=== PATIENT | male | born 1955 | race Caucasian/White ===

== ENCOUNTER → 2020-12-31 14:18 | Outpatient (CLI) | payer MEDICARE, OTHER, SELFPAY ==
--- NOTE | 2020-12-31 14:22 | DI.RAD.S_ITS ---
PROCEDURE: XR CERVICAL SPINE 4V OR 5V INDICATIONS: NECK/BACK PAIN TECHNIQUE: 5 views of the cervical spine acquired. COMPARISON: None. FINDINGS: Bones: No fractures or dislocations to the T1 level. Oblique images demonstrate no bony foraminal stenoses. Note is made of a moderately severe degree of C4-C5 degenerative disc height reduction and endplate osteophyte formation anteriorly. At C5-6 the degree of degenerative disc disease is mild and then moderately severe at C6-C7. Soft tissues: No prevertebral soft tissue swelling. IMPRESSION: Degenerative disc disease from C4 through C7 to the degree that significant spinal and foraminal stenosis likely is present. On oblique imaging facet osteoarthritis is noted over these levels which further contributes to nerve root impingement, with likelihood of multilevel symmetric nerve root impingement from C4 through C6. Dictated by: Jacinto Mcclure M.D. on 12/31/2020 at 15:08 Approved by: Jacinto Mcclure M.D. on 12/31/2020 at 15:09
--- NOTE | 2020-12-31 14:22 | DI.RAD.S_ITS ---
PROCEDURE: XR LUMBAR SPINE MIN 4V INDICATIONS: NECK/BACK PAIN TECHNIQUE: 5 views of the lumbar spine were acquired, including bilateral oblique views. COMPARISON: None. FINDINGS: Bones: 5 nonrib-bearing vertebrae are present. There is 18.5 degrees levoscoliotic bony alignment. No vertebral body compression fractures. No suspicious bony lesions. Soft tissues: Overlying bowel gas pattern is normal. No suspicious soft tissue calcifications. Oblique images: No pars defects. IMPRESSION: 18.5 degree convex leftward scoliosis centered at L2, without compression fracture or subluxation. The degenerative disc height reduction present ranges from mild to moderately severe and most pronounced at L4-5 where grade 1 moderate anterolisthesis of L4 on L5 can be seen. Spinal and foraminal stenosis from L3 inferiorly likely is present, most pronounced at L4-5 and L5-S1. Dictated by: Jacinto Mcclure M.D. on 12/31/2020 at 15:06 Approved by: Jacinto Mcclure M.D. on 12/31/2020 at 15:08
== END ==
PROVIDERS: PCP Family Medicine; Referring Provider Physical Medicine & Rehabilitation; Visit Provider Physical Medicine & Rehabilitation
DX: M54.9 Dorsalgia, unspecified (principal); M50.121 Cervical disc disorder at C4-C5 level with radiculopathy; M47.22 Other spondylosis with radiculopathy, cervical region; M41.27 Other idiopathic scoliosis, lumbosacral region; M43.16 Spondylolisthesis, lumbar region; M54.16 Radiculopathy, lumbar region; R20.2 Paresthesia of skin
CPT/HCPCS: 72050; 72110; 99214

== ENCOUNTER → 2021-01-03 19:10 | Outpatient (CLI) | payer MEDICARE, OTHER, SELFPAY ==
--- NOTE | 2021-01-03 19:15 | DI.MRI.S_ITS ---
PROCEDURE: MR CERVICAL SPINE WO CON INDICATIONS: paresthesia of skin TECHNIQUE: Noncontrast sagittal T1 spin echo and T2 fast spin echo, sagittal STIR, foraminal oblique sagittal T2 fast spin echo, and axial gradient echo or T2 fast spin echo through the cervical spine. COMPARISON: None. FINDINGS: Image quality: Excellent. Alignment and Curvature: There is normal bony alignment. Bone Marrow: Marrow demonstrates normal overall signal. Spinal Cord: Visualized spinal cord has normal size and signal. No cerebellar tonsillar herniation. Paraspinous Soft Tissues: No paravertebral masses. Prevertebral soft tissues are normal in thickness. C2-C3: Loss of disc signal. No central stenosis. No neural foraminal narrowing. No neural compression. C3-C4: Loss of disc signal. Mild, diffuse disc bulge. Mild narrowing of the central canal. Mild left uncovertebral joint hypertrophy. Mild left neural foraminal narrowing. No neural compression. C4-C5: Loss of disc signal and height. Moderate, diffuse disc bulge. Severe narrowing of the central canal with compression of the cervical spinal cord. Moderate bilateral uncovertebral joint hypertrophy. Severe bilateral neural foraminal narrowing with compression of the exiting C5 nerve roots. C5-C6: Loss of disc signal and height. Moderate, diffuse disc bulge. Severe narrowing of the central canal with slight compression of the cervical spinal cord. Mild bilateral facet hypertrophy. Mild right and moderate left uncovertebral joint hypertrophy. Severe bilateral neural foraminal narrowing with compression of the exiting C6 nerve roots. C6-C7: Loss of disc signal and height. Mild to moderate diffuse disc bulge. Moderate to severe narrowing of the central canal. Moderate bilateral uncovertebral joint hypertrophy. Mild bilateral facet hypertrophy. Severe bilateral neural foraminal narrowing with compression of the exiting C7 nerve roots. C7-T1: Loss of disc signal and height. Mild to moderate diffuse disc bulge. Moderate narrowing of the central canal. Severe right and mild left uncovertebral joint hypertrophy. Mild bilateral facet hypertrophy. Severe right and moderate left neural foraminal narrowing with compression of the exiting right C8 nerve root IMPRESSION: 1. Multilevel degenerative disc disease. 2. Multilevel facet and uncovertebral arthropathy. 3. Severe C4-C5 and C5-C6 central canal narrowing with compression of the cervical spinal cord. 4. Severe bilateral C4-C5, C5-C6 and C6-C7 neural foraminal narrowing with compression of the exiting C5, C6 and C7 nerve roots. Severe right C7-T1 neural foraminal narrowing with compression of the exiting right C7 nerve root. Dictated by: Monisha Browne MD, PhD on 01/04/2021 at 11:32 Approved by: Monisha Browne MD, PhD on 01/04/2021 at 11:43
== END ==
PROVIDERS: PCP Family Medicine; Referring Provider Physical Medicine & Rehabilitation; Visit Provider Physical Medicine & Rehabilitation
DX: R20.2 Paresthesia of skin (principal); M50.31 Other cervical disc degeneration, high cervical region; M47.812 Spondylosis without myelopathy or radiculopathy, cervical region; M48.02 Spinal stenosis, cervical region
CPT/HCPCS: 72141

== ENCOUNTER → 2021-01-22 08:15 | Outpatient (CLI) | payer MEDICARE, OTHER, SELFPAY ==
[2021-01-22 13:16] LABS: COVID19 -Nasal RAPID Negative (Negative)
== END ==
PROVIDERS: PCP Family Medicine; Visit Provider Physical Medicine & Rehabilitation
DX: Z20.822 Contact with and (suspected) exposure to COVID-19 (principal)
CPT/HCPCS: 87635; C9803

== ENCOUNTER 2021-01-24 13:11 | Outpatient (CLI) | payer MEDICARE, OTHER, SELFPAY ==
[2021-01-24] VITALS (11 sets, daily range): BP systolic 96–134; BP diastolic 53–67; PULSE 46–79; RESP 10–21; TEMP 36.6; O2SAT 94–99
--- NOTE | 2021-01-24 13:15 | DI.RAD.S_ITS ---
PROCEDURE: PAIN L/S FACET INJ/BLK 1ST ELIA COMPARISON: [facility], CR, XR LUMBAR SPINE MIN 4V, 12/31/2020, 14:30. INDICATIONS: SPONDYLOSIS FINDINGS: Fluoroscopic spot filming was performed to verify placement of spinal needles on both sides at the L3-L4 level and the L4-L5 level, as labeled on the films. Appropriate location of the needle tips was confirmed by injection of iodinated contrast. IMPRESSION: Intraprocedural examination within normal limits. Dictated by: Dhruv Boyle M.D. on 01/24/2021 at 14:56 Approved by: Dhruv Boyle M.D. on 01/24/2021 at 14:56
[2021-01-24] MEDS: MIDAZOLAM 5 MG/5 ML VIAL IV (14:25)
[2021-01-24] MEDS: fentaNYL 100 MCG/2 ML INJ 50 MCG IV (14:25)
[2021-01-24] MEDS: BETAMETHASONE 30 MG/5 ML MDV 12 MG INJ (14:34)
[2021-01-24] MEDS: LIDOCAINE 1% 20 ML 10 ML INJ (14:34)
[2021-01-24] MEDS: BUPIVACAINE 0.5% (PF) VIAL 2 ML INJ (14:34)
[2021-01-24] MEDS: IOPAMIDOL 15 ML VIAL 3 ML INJ (14:35)
--- NOTE | 2021-01-24 14:44 | P.PCN_ITS ---
Date/Time/Diagnoses Date of procedure: 01/24/21 Time of procedure: 14:44 Pre-procedure diagnosis: 1. FACET ARTHROPATHY 2. AXIAL LBP 3. MULTILEVEL DDD Post-procedure diagnosis: same Procedure Notes Procedure: 1. FLUORSCOPICALLY GUIDED CONTRAST CONTROLLED FACET JOINT INJECTIONS BILATERAL L3/4, L4/5 Indications: Greyson is referred by Dr. Holley for treatment of Axial LBP Physician: Jerod Deras Total Fluoroscopy time (seconds): 11 Total sedation minutes: 16 Complications: none Procedure in detail & Post-procedure care: FINDINGS Multilevel Facet Arthropathy with Clinically significant axial LBP DESCRIPTION OF PROCEDURE Fluoroscopically guided, contrast-controlled bilateral L3/4, L4/5 facet joint injections. Following review of allergy and review of potential side effects and complications, including, but not necessarily limited to, infection, allergic reaction, local tissue breakdown, stroke, temporary or permanent nerve injury, paralysis, and possible , the patient indicated that the patient understood and agreed to proceed. An informed consent document was signed by the patient, witnessed by a nurse, and placed in the patient's chart. Additionally, other treatment options including medications, modalities, and physical therapy were reviewed with the patient. After review of previous anaesthesic history and IV conscious sedation the patient was deemed safe to proceed with today's procedure with IV conscious sedation as ASA class II designation. Safety time-out was performed to confirm patient ID, procedure to be performed and site of procedure. IV sedation was accomplished with a combination of 2mg of Versed and 50mcg of Fentanyl was administered by the RN after DO order, titrated to patient comfort during the course of the procedure while the patient remained responsive to all verbal commands. In the prone position, following sterile prep and drape of the lumbar region, the posterior aspect of the L3/4, L4/5 facet joints were identified fluoroscopically. The skin was anesthetized via a 25-gauge 1.5-inch needle with 1% lidocaine solution into the corresponding facet joints. At this point, a 22- gauge 3.5-inch spinal needle was atraumatically introduced and advanced under fluoroscopic guidance into the corresponding facet joints. Following negative aspiration, injections of approximately 0.2cc of Isovue 200 confirmed interarticular placement without vascular uptake. The identical procedure was then performed at the L3/4, L4/5 facet joints on the left. Radiological data, including multiple fluoroscopic views of the lumbosacral spine, reveal a spinal needle at the L3/4, L4/5 facet joints bilaterally. Subsequent views show flow of contrast material both superiorly and inferiorly within the joint space without vascular or intrathecal uptake. At this point, a total of 0.5cc including a mixture of 0.25cc Marcaine and 0.25cc betamethasone was injected without complication into each of the corresponding facet joints. The patient tolerated the procedure well without signs or symptoms of complications prior to transfer to the recovery area continued monitoring without incident. The patient was then transferred to the recovery area where they were observed for an appropriate period of time after the injection. The patient reported a VAS score of 7 prior to the procedure and a post-procedure VAS of 0. POST OP INSTRUCTIONS The patient was provided a Pain Log to continue to record their response to the target-specific procedure prior to follow-up visit with their referring phys ician. Additionally, specific post-injection care instructions and a contact number to our office were provided if concerns arise regarding possible complications associated with the procedure are suspected.
== END 2021-01-24 15:11 | disposition home or self-care (01) ==
LOC: RAD 13:14
PROVIDERS: PCP Family Medicine; Referring Provider Physical Medicine & Rehabilitation; Visit Provider Physical Medicine & Rehabilitation
DX: M47.816 Spondylosis without myelopathy or radiculopathy, lumbar region (principal); M51.36 Other intervertebral disc degeneration, lumbar region; M54.5 Low back pain
CPT/HCPCS: 64493; 64494; 99152; J0702; J2250; J3010

== ENCOUNTER 2021-04-11 14:54 | Outpatient (CLI) | payer MEDICARE, OTHER, SELFPAY ==
--- NOTE | 2021-04-11 14:57 | DI.RAD.S_ITS ---
PROCEDURE: PAIN L INTERLAMINAR/CAUDAL INJ INDICATIONS: SPONDYLOSIS COMPARISON: None. FINDINGS: Fluoroscopic spot filming was performed to verify placement of spinal needles at the L4-L5 level(s), as labeled on the films. Appropriate location(s) of the needle tip(s) was confirmed by injection of iodinated contrast. Dictated by: Isidro Ruiz M.D. on 04/11/2021 at 16:21 Approved by: Isidro Ruiz M.D. on 04/11/2021 at 16:21
[2021-04-11 15:05] VITALS: BP 117/65; PULSE 62; RESP 18; TEMP 36.6; O2SAT 97
[2021-04-11 15:26] VITALS: BP 139/65; PULSE 54; RESP 15; O2SAT 97
[2021-04-11] MEDS: fentaNYL 100 MCG/2 ML INJ 50 MCG IV (15:28)
[2021-04-11] MEDS: MIDAZOLAM 5 MG/5 ML VIAL IV (15:28)
[2021-04-11 15:30] VITALS: BP 126/66; PULSE 54; RESP 11; O2SAT 94
[2021-04-11] MEDS: IOPAMIDOL 15 ML VIAL 3 ML INJ (15:32)
[2021-04-11] MEDS: DEXAMETHASONE 10 MG/ML VIAL 20 MG INJ (15:32)
[2021-04-11] MEDS: BUPIVACAINE 0.25% (PF) VIAL 2 ML INJ (15:32)
[2021-04-11] MEDS: BETAMETHASONE 30 MG/5 ML MDV 6 MG INJ (15:33)
[2021-04-11 15:35] VITALS: BP 121/68; PULSE 54; RESP 10; O2SAT 95
--- NOTE | 2021-04-11 15:42 | P.PCN_ITS ---
Date/Time/Diagnoses Date of procedure: 04/11/21 Time of procedure: 15:44 Pre-procedure diagnosis: 1. HNP WITH RADICULAR FEATURES, 2. MULTILEVEL CENTRAL STENOSIS, Post-procedure diagnosis: same Procedure Notes Procedure: 1. FLUOROSCOPICALLY GUIDED CONTRAST CONTROLLED INTERLAMINAR EPIDURAL STEROID INJECTION -L4/5 Indications: Greyson is referred by Dr. Holley for treatment of Bilateral Foraminal Stenosis R>L LE symptoms. Physician: Jerod Deras Total Fluoroscopy time (seconds): 6 Total sedation minutes: 8 Complications: none Procedure in detail & Post-procedure care: FINDINGS Multilevel Central Spinal Stenosis with Nerve Root Compression DESCRIPTION OF PROCEDURE Fluoroscopically guided, contrast-controlled L4/5 translaminar epidural steroid injection. Following review of allergy and review of potential side effects and complications, including, but not necessarily limited to, infection, allergic reaction, local tissue breakdown, temporary as well as permanent nerve injury, paralysis, stroke and possible , the patient indicated that the patient understood and agreed to proceed. An informed consent document was signed by the patient, witnessed by a nurse, and placed in the patient's chart. Additionally, other treatment options including modalities, medications, and physical therapy were reviewed with the patient. After review of previous anaesthesic history and IV conscious sedation the patient was deemed safe to proceed with today?s procedure with IV conscious sedation as ASA class II designation. Safety time-out was performed to confirm patient ID, procedure to be performed and site of procedure. IV sedation was accomplished with a combination of 2mg of Versed and 50mcg of Fentanyl was administered by the RN after DO order, titrated to patient comfort during the course of the procedure while the patient remained responsive to all verbal commands In the prone position, following sterile prep and drape of the lumbar region, the L4/5 translaminar space was identified fluoroscopically. The skin was anesthetized via a 25-gauge, 1.5inch needle with 1% lidocaine solution. At this point, a 22-gauge short bevel spinal needle was atraumatically introduced and advanced under fluoroscopic guidance into the region of the L4/5 translaminar space. Depth was confirmed on lateral view. Radiological data, including multiple fluoroscopic views of the lumbar spine, reveal a spinal needle at the L4/5 translaminar space. Lateral views then show placement of the needle in the epidural space. Subsequent views show contrast material flowing superiorly and inferiorly in the epidural space. No vascular or intrathecal uptake is observed. At this point, using loss of resistance technique with saline and air, the epidural space was entered. This was confirmed following negative aspiration with injection of approximately 1.5cc of Isovue 200, showing excellent epidural flow without vascular or intrathecal uptake. At this point, 1cc of 1% lidocaine solution combined with 3cc or 20mg of dexamethasone and 6mg betamethasone was injected without incident. The patient tolerated the procedure well without signs or symptoms of complications prior to transfer to the recovery area continued monitoring without incident. The patient was then transferred to the recovery area where they were observed for an appropriate period of time after the injection. The patient reported a VAS score of 6 prior to the procedure and a post- procedure VAS of 0. POST OP INSTRUCTIONS The patient was provided a Pain Log to continue to record their response to the target-specific procedure prior to follow-up visit with their referring physician. Additionally, specific post-injection care instructions and a contact number to our office were provided if concerns arise regarding possible complications associated with the procedure are suspected.
[2021-04-11 15:50] VITALS: BP 113/67; PULSE 56; RESP 20; TEMP 36.6; O2SAT 96
[2021-04-11 15:55] VITALS: BP 119/73; PULSE 55; RESP 20; TEMP 36.6; O2SAT 95
== END 2021-04-11 16:05 | disposition home or self-care (01) ==
LOC: RAD 14:57
PROVIDERS: PCP Family Medicine; Referring Provider Physical Medicine & Rehabilitation; Visit Provider Physical Medicine & Rehabilitation
DX: M51.16 Intervertebral disc disorders with radiculopathy, lumbar region (principal); M48.061 Spinal stenosis, lumbar region without neurogenic claudication
CPT/HCPCS: 62323; J0702; J1100; J2250; J3010

== ENCOUNTER 2021-07-25 12:20 | Outpatient (CLI) | payer MEDICARE, OTHER, SELFPAY ==
[2021-07-25] VITALS (9 sets, daily range): BP systolic 108–128; BP diastolic 53–70; PULSE 50–67; RESP 9–24; TEMP 36.3; O2SAT 94–99
--- NOTE | 2021-07-25 12:21 | DI.RAD.S_ITS ---
PROCEDURE: PAIN L/S FACET INJ/BLK 1ST ELIA COMPARISON: [facility], XA, PAIN L/S FACET INJ/BLK 1ST ELIA, 01/24/2021, 14:31. INDICATIONS: SPONDYLOSIS FINDINGS: Needle placement overlying L3, L4, L5. IMPRESSION: Needle placement as above. Dictated by: Buffy Shelby M.D. on 07/25/2021 at 16:55 Approved by: Buffy Shelby M.D. on 07/25/2021 at 16:55
[2021-07-25] MEDS: fentaNYL 100 MCG/2 ML INJ 50 MCG IV (13:20)
[2021-07-25] MEDS: MIDAZOLAM 5 MG/5 ML VIAL IV (13:20)
[2021-07-25] MEDS: LIDOCAINE 1% 20 ML 10 ML INJ (13:25)
[2021-07-25] MEDS: BUPIVACAINE 0.5% (PF) VIAL 5 ML INJ (13:26)
[2021-07-25] MEDS: IOPAMIDOL 15 ML VIAL 3 ML INJ (13:26)
--- NOTE | 2021-07-25 13:39 | PM.PROC.IR.1 ---
Date/Time/Diagnoses Date of procedure: 07/25/21 Time of procedure: 13:39 Pre-procedure diagnosis: 1. FACET ARTHROPATHY Post-procedure diagnosis: same Procedure Notes Procedure: 1. BILATERAL L3, L4 AND L5 DIAGNOSTIC MB BLOCKS Indications: Greyson is referred by Dr. Holley for treatment of Bilateral Axial LBP. Physician: Jerod Deras Total Fluoroscopy time (seconds): 10 Total sedation minutes: 15 Complications: none Procedure in detail & Post-procedure care: DESCRIPTION OF PROCEDURE Fluoroscopically guided, contrast-controlled bilateral L3, L4 AND L5 medial branch blocks with 0.5cc of 0.5% Marcaine. Following review of allergy and review of potential side effects and complications, including, but not necessarily limited to, infection, allergic reaction, local tissue breakdown, nerve injury, paralysis, stroke and possible , the patient indicated that the patient understood and agreed to proceed. An informed consent document was signed by the patient, witnessed by a nurse, and placed in the patient's chart. After review of previous anaesthesic history and IV conscious sedation the patient was deemed safe to proceed with today's procedure with IV conscious sedation as ASA class II designation. Safety time-out was performed to confirm patient ID, procedure to be performed and site of procedure. IV sedation was accomplished with a combination of 2mg of Versed and 50mcg of Fentantyl was administered by the RN after DO order, titrated to patient comfort during the course of the procedure while the patient remained responsive to all verbal commands In the prone position, following sterile prep and drape of the lumbar region, the right L3, L4 AND L5 anatomical location of the medial branch of the dorsal ramus was identified fluoroscopically. Subsequently an anesthetic skin wheal using 1% lidocaine solution was initiated at each of the anatomical spots. Subsequently then a 22-gauge 3.5-inch spinal needle was atraumatically introduced and advanced under fluoroscopic guidance at each of the corresponding sites at the right L3, L4 and L5 MB. After negative aspiration, 0.2cc of Isovue 200 was injected, confirming placement without vascular or intrathecal uptake. Subsequently then 0.5cc of 0.5% Marcaine solution was injected at each of the corresponding sites at the right L3, L4 and L5 medial branch locations. The identical procedure was replicated on the left. The patient tolerated the procedure well without signs or symptoms of complications. The patient tolerated the procedure well without signs or symptoms of complications prior to transfer to the recovery area continued monitoring without incident. Post-procedure, the patient was monitored initiating provocative activities to measure the amount of relief from block of the facetogenic pain. The patient reported a VAS of 7 prior to the procedure and a post-procedure VAS of 1. It has been a pleasure to assist in the diagnostic and therapeutic care of your patient. POST OP INSTRUCTIONS The patient was provided with a Pain Log to complete over the next several hours and subsequent days prior to the patient's follow up with the ordering physician. If the patient has senior occupational therapist relief to the solution applied, then they may be a candidate for medial branch rhizotomy. The patient is aware, was provided, once again, with a Pain Log and will follow up with the referring physician for review and clinical correlation
== END 2021-07-25 14:13 | disposition home or self-care (01) ==
LOC: RAD 12:21
PROVIDERS: PCP Family Medicine; Referring Provider Physical Medicine & Rehabilitation; Visit Provider Physical Medicine & Rehabilitation
DX: M47.816 Spondylosis without myelopathy or radiculopathy, lumbar region (principal)
CPT/HCPCS: 64493; 64494; 99152; J2250; J3010

== ENCOUNTER → 2022-02-18 12:55 | Outpatient (CLI) | payer MEDICARE, OTHER, SELFPAY | PROVIDERS: PCP Family Medicine; Visit Provider Specialist | DX: R30.0 Dysuria (principal) | CPT/HCPCS: 87086 ==

== ENCOUNTER → 2022-02-18 14:14 | Outpatient (CLI) | payer MEDICARE, OTHER, SELFPAY ==
--- NOTE | 2022-02-18 | DI.RAD.S_ITS ---
PROCEDURE: XR KUB INDICATIONS: KIDNEY STONES/BLOOD IN URINE TECHNIQUE: One view of the abdomen acquired. COMPARISON: None. FINDINGS: Surgical changes and devices: None. Bowel: Bowel gas pattern is normal. No free air, pneumatosis, or portal venous gas. Soft tissues: No suspicious abdominal calcifications. Visualized solid organ contours appear normal in size. Bones: No suspicious bony lesions. Levoscoliosis of the lumbar spine with multilevel degenerative changes. Both hips have moderate degenerative changes. IMPRESSION: No acute plain film abnormality of the abdomen. Dictated by: Rajinder Paul M.D. on 02/18/2022 at 15:29 Approved by: Rajinder Paul M.D. on 02/18/2022 at 15:30
== END ==
PROVIDERS: PCP Family Medicine; Referring Provider Specialist; Visit Provider Specialist
DX: N20.0 Calculus of kidney (principal); N40.0 Benign prostatic hyperplasia without lower urinary tract symptoms
CPT/HCPCS: 51798; 52000; 74018; 81002; 87086; 99215

== ENCOUNTER → 2022-02-24 10:10 | Outpatient (CLI) | payer MEDICARE, OTHER, SELFPAY ==
[2022-02-24 11:48] LABS: COVID19 -Nasal RAPID Negative (Negative)
== END ==
PROVIDERS: PCP Family Medicine; Visit Provider Physical Medicine & Rehabilitation
DX: Z20.822 Contact with and (suspected) exposure to COVID-19 (principal)
CPT/HCPCS: 87635; C9803

== ENCOUNTER 2022-02-25 09:17 | Outpatient (CLI) | payer MEDICARE, OTHER, SELFPAY ==
[2022-02-25] VITALS (9 sets, daily range): BP systolic 118–157; BP diastolic 65–77; PULSE 44–59; RESP 12–23; TEMP 36.2; O2SAT 97–99
--- NOTE | 2022-02-25 09:19 | DI.RAD.S_ITS ---
PROCEDURE: PAIN L/S FACET INJ/BLK 1ST ELIA COMPARISON: None. INDICATIONS: SPONDYLOSIS FINDINGS: Access needles at the bilateral L3, L4 and L5 pedicles. Injection of small amount of high-density contrast demonstrates axis needles are extra thecal. IMPRESSION: Tips of access needles at the bilateral L3, L4 and L5 pedicles for bilateral L3, L4 and L5 medial branch block. Dictated by: Monisha Browne MD, PhD on 02/25/2022 at 11:32 Approved by: Monisha Browne MD, PhD on 02/25/2022 at 11:33
[2022-02-25] MEDS: MIDAZOLAM 2 MG/2 ML VIAL (11:02)
[2022-02-25] MEDS: IOPAMIDOL 15 ML VIAL 3 ML INJ (11:06)
[2022-02-25] MEDS: BUPIVACAINE 0.5% (PF) VIAL 5 ML INJ (11:06)
[2022-02-25] MEDS: LIDOCAINE 1% 20 ML (11:06)
--- NOTE | 2022-02-25 11:20 | P.PCN_ITS ---
Date/Time/Diagnoses Date of procedure: 02/25/22 Time of procedure: 11:21 Pre-procedure diagnosis: 1. FACET ARTHROPATHY Post-procedure diagnosis: same Procedure Notes Procedure: 1. BILATERAL L3, L4 AND L5 DIAGNOSTIC MB BLOCKS Indications: Greyson is referred by Dr. Friend for treatment of Bilateral Axial LBP. Physician: Jerod Deras Total Fluoroscopy time (seconds): 10 Total sedation minutes: 13 Complications: none Procedure in detail & Post-procedure care: DESCRIPTION OF PROCEDURE Fluoroscopically guided, contrast-controlled bilateral L3, L4 AND L5 medial branch blocks with 0.5cc of 2% Lidocaine. Following review of allergy and review of potential side effects and complications, including, but not necessarily limited to, infection, allergic reaction, local tissue breakdown, nerve injury, paralysis, stroke and possible , the patient indicated that the patient understood and agreed to proceed. An informed consent document was signed by the patient, witnessed by a nurse, and placed in the patient's chart. After review of previous anaesthesic history and IV conscious sedation the patient was deemed safe to proceed with today's procedure with IV conscious sedation as ASA class II designation. Safety time-out was performed to confirm patient ID, procedure to be performed and site of procedure. IV sedation was accomplished with a combination of 2mg of Versed was administered by the RN after DO order, titrated to patient comfort during the course of the procedure while the patient remained responsive to all verbal commands In the prone position, following sterile prep and drape of the lumbar region, the right L3, L4 AND L5 anatomical location of the medial branch of the dorsal ramus was identified fluoroscopically. Subsequently an anesthetic skin wheal using 1% lidocaine solution was initiated at each of the anatomical spots. Subsequently then a 22-gauge 3.5-inch spinal needle was atraumatically introduced and advanced under fluoroscopic guidance at each of the corresponding sites at the right L3, L4 and L5 MB. After negative aspiration, 0.2cc of Isovue 200 was injected, confirming placement without vascular or intrathecal uptake. Subsequently then 0.5cc of 2% Lidocaine solution was injected at each of the corresponding sites at the right L3, L4 and L5 medial branch locations. The identical procedure was replicated on the left. The patient tolerated the pro cedure well without signs or symptoms of complications. The patient tolerated the procedure well without signs or symptoms of complications prior to transfer to the recovery area continued monitoring without incident. Post-procedure, the patient was monitored initiating provocative activities to measure the amount of relief from block of the facetogenic pain. The patient reported a VAS of 7 prior to the procedure and a post-procedure VAS of 1. It has been a pleasure to assist in the diagnostic and therapeutic care of your patient. POST OP INSTRUCTIONS The patient was provided with a Pain Log to complete over the next several hours and subsequent days prior to the patient's follow up with the ordering physician. If the patient has agile java developer relief to the solution applied, then they may be a candidate for medial branch rhizotomy. The patient is aware, was provided, once again, with a Pain Log and will follow up with the referring physician for review and clinical correlation
== END 2022-02-25 11:40 | disposition home or self-care (01) ==
LOC: RAD 09:19
PROVIDERS: PCP Family Medicine; Referring Provider Physical Medicine & Rehabilitation; Visit Provider Physical Medicine & Rehabilitation
DX: M47.816 Spondylosis without myelopathy or radiculopathy, lumbar region (principal)
CPT/HCPCS: 64493; 64494; 99152; J2250

== ENCOUNTER → 2022-03-04 13:02 | Outpatient (CLI) | payer MEDICARE, OTHER, SELFPAY ==
[2022-03-04 14:44] LABS: COVID19 -Nasal RAPID Negative (Negative)
== END ==
PROVIDERS: PCP Family Medicine; Visit Provider Specialist
DX: Z20.822 Contact with and (suspected) exposure to COVID-19 (principal)
CPT/HCPCS: 87635; C9803

== ENCOUNTER 2022-03-07 08:10 | Day surgery (SDC) | payer MEDICARE, OTHER, SELFPAY ==
[2022-03-04 12:34] VITALS: BMI 24.6
[2022-03-07] VITALS (11 sets, daily range): BP systolic 120–148; BP diastolic 26–86; PULSE 50–70; RESP 12–22; TEMP 36–36.8; O2SAT 96–100; BMI 24.6
--- NOTE | 2022-03-07 09:05 | PM.PREOP ---
Pre-operative Note COVID-19 Criteria for continued procedure: Expected advancement of disease process, Possibility delay results in more complex future surgery or treatment, Delay expected to result in less-positive ultimate med/surg outcome and Non-surgical alternatives not available or appropriate per current SOC Interval Note History & Physical reviewed/Exam performed by Physician: Yes Changes to H&P: No
[2022-03-07] MEDS: LACTATED RINGERS 1,000 ML 42 ML IV (09:12)
[2022-03-07] MEDS: CEFAZOLIN 2 GM/20 ML SYRINGE IV (09:45)
--- NOTE | 2022-03-07 10:11 | SUR.OPER ---
Lithotomy on padded OR bed, head on pillow, arms secured AT SIDE ON BED. Legs secured in padded yellow fins stirrups.
[2022-03-07] MEDS: IOPAMIDOL 50 ML VIAL INJ (10:22)
--- NOTE | 2022-03-07 10:36 | PM.OP.1 ---
Operative Date/Time/Diagnoses Date of procedure: 03/07/22 Time of procedure: 10:37 Pre-op diagnosis: 1. Left renal calculi. 2. Gross hematuria. Post-op diagnosis: same Procedure & Clinicians Procedure: 1. Cystoscopy/left retrograde pyelogram. 2. Left extracorporeal shockwave lithotripsy (maximal power level 7.0 times 2000 shocks). Same procedure as scheduled: Yes Indications: 1. Left renal calculi. 2. Gross hematuria. Surgeon: Julius Ma Click Yes if Unassisted: Yes Anesthesia Type: General Operative Notes Findings: 1. Urethra-normal caliber without annular stricture or lesion. 2. External sphincter-coapted with normal overlying urothelium. 3. Prostate-4 cm length nonobstructing status post TUR. 4. Bladder-1+ trabeculation. Normal ureteral orifices bilaterally. No stone, tumor, foreign body identified. 5. Left collecting system. Contrast enhancement identified index renal pelvic calculus unchanged in position to that on preoperative imaging CT. Closure Type: not applicable Specimen(s): none sent Estimated Blood Loss (mL): 0 Blood products transfused: none Procedure in detail: The patient was positioned supine and administered general anesthesia. He was then repositioned semi lithotomy common the lower abdomen, genitalia, and groin were then prepped and draped in sterile fashion. The 22 Irish panendoscope was then passed lower urinary tract with the findings as described above. A 0.35 hybrid guidewire was then advanced into the left collecting system under direct and fluoroscopic guidance. Over this a 5 Irish pollock open-ended catheter was advanced over the hybrid guidewire positioned just below the ureteropelvic junction on the left. The hybrid guidewire is was then backloaded out of the [place] catheter. The panendoscope was then backloaded off the [place] catheter. [place] catheter was then secured to the glans and distal penile shaft with a medium Op site dressing. The patient was then repositioned in supine. Intermittent injection of small volumes Isovue contrast was then performed as needed throughout the case to optimize localization the renal pelvic calculus. The calculus was then localized in the X, Y, and Z plane. Lithotripsy was then commenced at minimal power level for 200 shocks. A 2 minute pause was then conducted. Lithotripsy was then commenced and power level was gradually increased to maximum of 7.0. The stone and its fragments were re- localized with administration of small volumes contrast through the [place] catheter as needed throughout treatment. At 2000 shocks there was excellent radiographic evidence of stone comminution. Treatment was halted. The 5 Irish pollock catheter was then removed. The patient was then awakened, transferred to [facility], and transported recovery in stable condition. Complications: none Post-operative Condition: stable Disposition: PACU Plan for aftercare: Discharge home.
[2022-03-07] MEDS: HYDROMORPHONE 2 MG INJ IV ×3 (11:05→11:28)
[2022-03-07] MEDS: FUROSEMIDE 20 MG/2 ML VIAL IV (11:07)
--- NOTE | 2022-03-07 11:31 | SUR.PHASEI ---
Addendum entered by Ivelisse Meyer R.N. 03/07/22 12:37: 1230: Updated spouse Addendum entered by Ivelisse Meyer R.N. 03/07/22 12:05: 1205: pt having severe pain in left lower abdomen, treated with PRN dilaudid, heat, positioning, splinting with little to no relief. Notified Dr. Ma with pt condition, new orders received. Pt attempt to void, unable. Gap in VS documentation R/T voiding attempts. Original Note: 1115: Updated spouse
[2022-03-07] MEDS: ACETAMINOPHEN IV 1,000 MG/100 ML VIAL 400 MG IV (11:56)
[2022-03-07] MEDS: BELLADONNA/OPIUM SUPPOSITORIES 1 EACH PR (12:01)
--- NOTE | 2022-03-07 12:45 | SUR.PHASEII ---
pt able to void post op. Blood noted and clots present. Urine strained, no calculi noted.
== END 2022-03-07 12:51 | disposition home or self-care (01) ==
PROVIDERS: PCP Family Medicine; Referring Provider Specialist; Visit Provider Specialist
PROC: (CPT 50590; principal; 2022-03-07 09:50)
PROC: (CPT 50590; 2022-03-07 09:50)
DX: N20.0 Calculus of kidney (principal); R31.0 Gross hematuria; N40.0 Benign prostatic hyperplasia without lower urinary tract symptoms; Z85.51 Personal history of malignant neoplasm of bladder
CPT/HCPCS: 50590; 52005; J0131; J0690; J1100; J1170; J1940; J2405; J2704; J3010

== ENCOUNTER 2022-11-04 06:59 | Outpatient (CLI) | payer MEDICARE, OTHER, SELFPAY ==
[2022-11-04] VITALS (13 sets, daily range): BP systolic 112–137; BP diastolic 60–81; PULSE 50–59; RESP 13–19; TEMP 36.1; O2SAT 95–97
--- NOTE | 2022-11-04 07:01 | DI.RAD.S_ITS ---
PROCEDURE: PAIN L/S MED/LAT N RFA BILAT INDICATIONS: SPONDYLOSIS COMPARISON: CR, XR LUMBAR SPINE MIN 4V, 12/31/2020, 14:30. FINDINGS: Fluoroscopic spot filming was performed to verify placement of spinal needles at the L3, L4 and L5 level(s), as labeled on the films. Appropriate location(s) of the needle tip(s) was confirmed by injection of iodinated contrast. IMPRESSION: Fluoroscopy for pain management. Dictated by: Garry eLblanc M.D. on 11/04/2022 at 9:35 Approved by: Garry Leblanc M.D. on 11/04/2022 at 9:39
[2022-11-04] MEDS: MIDAZOLAM 2 MG/2 ML VIAL IV (08:23)
[2022-11-04] MEDS: BUPIVACAINE 0.5% (PF) 30 ML VIAL 5 ML INJ (08:28)
[2022-11-04] MEDS: LIDOCAINE 1% 20 ML INJ (08:28)
--- NOTE | 2022-11-04 09:06 | P.PCN_ITS ---
Date/Time/Diagnoses Date of procedure: 11/04/22 Time of procedure: 09:06 Pre-procedure diagnosis: 1. RECALCITRANT FACET ARTHROPATHY Post-procedure diagnosis: same Procedure Notes Procedure: 1. BILATERAL L3, L4 AND L5 MEDIAL BRANCH RADIOFREQUENCY NEUROTOMY Indications: Greyson is referred by Dr. Friend for treatment of facet arthropathy. Physician: Jerod Deras Total Fluoroscopy time (seconds): 21 Total sedation minutes: 38 Complications: none Procedure in detail & Post-procedure care: DESCRIPTION OF PROCEDURE Bilateral L3, L4 and L5 medial branch radiofrequency neurotomy The patient is well known to this clinic having undergone previous facet injections with good but temporary relief. The patient has experienced appropriate, concordant relief with previous facet and median branch blocks but the patient's pain has been recalcitrant to further conservative measures. Therefore, based upon the patient's relief and persistent symptoms, the patient is considered an appropriate candidate for facet rhizotomy. All of the patient's questions regarding the risks versus benefits of the procedure, including, but not limited to, bleeding, infection, temporary as well as lasting nerve injury, paralysis, stroke, and , as well treatment alternatives were answered to satisfaction. After obtaining informed consent, denial of pertinent drug allergies, as well as being made aware of the potential risks of bleeding, infection, spinal cord trauma, paralysis, temporary and permanent nerve damage, seizure, stroke, and possible , the patient was brought to the fluoroscopy suite and positioned prone on the fluoroscopy table. The lumbar region was prepped with Betadine and covered with a fenestrated drape in the usual sterile fashion. Appropriate monitors applied including pulse oxim eter, pulse, and blood pressure for regular monitoring throughout the procedure. After review of previous anaesthesic history and IV conscious sedation the patient was deemed safe to proceed with today's procedure with IV conscious sedation as ASA class II designation. Safety time-out was performed to confirm patient ID, procedure to be performed and site of procedure. IV sedation was accomplished with a combination of 2mg of Versed administered by the RN after DO order, titrated to patient comfort during the course of the procedure while the patient remained responsive to all verbal commands. After local infiltration using 1% lidocaine, under fluoroscopic guidance, a 10- cm RF insulated needle with a 10-mm active tip was positioned parallel to the junction of the right the superior articulating process where the L5 medial branch resides. Needle placement was confirmed with motor stimulation of .5v on the right which produced local stimulation without radicular component. The st imulation was then increased to 2v with, once again, only local multifidus stimulation without radicular component. The needle was then removed and the identical procedure was performed along the length of the right L4 medial branch with motor stimulation at .7v on the right. The identical procedure was once again performed along the length of the right L3 and medial branch with motor stimulation of .5v on the right. The medial branches were then anesthetised with 0.5% marcaine. This was then followed by two discreet Venom lesions performed at 80 degrees Celsius for 90 seconds each. The identical procedures were repeated on the left. The patient tolerated the procedure well without signs or symptoms of complications prior to transfer to the recovery area continued monitoring without incident. The patient was then transferred to the recovery area where they were observed for an appropriate period of time after the injection. The patient reported a VAS score of 9 prior to the procedure and a post-procedure VAS of 0. POST OP INSTRUCTIONS The patient was provided a Pain Log to continue to record the patient's response to the target-specific procedure prior to the patient's follow-up visit with the referring physician. Additionally, specific post-injection care instructions and a contact number to our office were provided if concerns arise regarding possible complications associated with the procedure are suspected.
== END 2022-11-04 09:19 | disposition home or self-care (01) ==
LOC: RAD 07:01
PROVIDERS: PCP Family Medicine; Referring Provider Physical Medicine & Rehabilitation; Visit Provider Physical Medicine & Rehabilitation
DX: M47.816 Spondylosis without myelopathy or radiculopathy, lumbar region (principal)
CPT/HCPCS: 64635; 64636; 99152; 99153; J2250

== ENCOUNTER 2022-12-19 08:38 | Day surgery (SDC) | payer MEDICARE, OTHER, SELFPAY ==
[2022-12-17 15:18] VITALS: BMI 22.8
--- NOTE | 2022-12-19 | DI.RAD.S_ITS ---
PROCEDURE: XR KUB INDICATIONS: Left ureteral calculus TECHNIQUE: One view of the abdomen acquired. COMPARISON: [facility], RG, CT KUB, 12/09/2022, 10:08. [facility], CR, XR KUB, 02/18/2022, 14:17. FINDINGS: Surgical changes and devices: None. Bowel: Bowel gas pattern is normal. Soft tissues: No suspicious abdominal calcifications. Visualized solid organ contours appear normal in size. The stones noted on the recent CT KUB are not identified on the plain film. Bones: No suspicious bony lesions. IMPRESSION: Renal calculi not identified. No evidence acute abdominal process. Dictated by: Enzo Hastings M.D. on 12/19/2022 at 9:10 Approved by: Enzo Hastings M.D. on 12/19/2022 at 9:11
[2022-12-19 09:13] VITALS: BP 132/72; PULSE 59; RESP 16; TEMP 36.4; O2SAT 97; BMI 22.8
[2022-12-19] MEDS: LACTATED RINGERS 1,000 ML 21 ML IV ×2 (09:24→11:52)
[2022-12-19] MEDS: ACETAMINOPHEN IV 1,000 MG/100 ML VIAL 400 MG IV (09:24)
--- NOTE | 2022-12-19 10:29 | PM.PREOP ---
Pre-operative Note COVID-19 Criteria for continued procedure: Expected advancement of disease process, Continuing or worsening of significant or severe pain, Deterioration of the patient's condition or overall health, Delay expected to result in less-positive ultimate med/surg outcome and Non-surgical alternatives not available or appropriate per current SOC Interval Note History & Physical reviewed/Exam performed by Physician: Yes Changes to H&P: No
--- NOTE | 2022-12-19 10:42 | P.OP_ITS ---
Operative Date/Time/Diagnoses Date of procedure: 12/19/22 Time of procedure: 11:30 Pre-op diagnosis: 1. 4 mm obstructing left ureterovesical junction calculus. 2. Gross hematuria. Post-op diagnosis: same Procedure & Clinicians Procedure: 1. Cystoscopy/left ureteroscopic stone extraction. Same procedure as scheduled: Yes Indications: 1. Obstructing 4 mm left ureterovesical junction calculus. 2. Intermittent gross hematuria. Surgeon: Julius Ma Click Yes if Unassisted: Yes Anesthesia Type: General Operative Notes Findings: 1. Urethra-normal caliber without annular stricture or lesion. 2. External sphincter-coapted with normal overlying urothelium. 3. Prostate-nonobstructing status post TUR. 4. Bladder-1+ trabeculation. Normal appearing ureteral orifices bilaterally. Following balloon dilation of left ureterovesical junction the stone was expelled from the left ureter and lay dependently on the bladder floor. 5. Left ureter-mild evidence of mucosal erosion irritation distally indistinguishable from balloon dilation related trauma. No stone found within the length of the ureter. Closure Type: not applicable Specimen(s): other (Calculus from left ureter.) Estimated Blood Loss (mL): 2 Procedure in detail: Patient was positioned supine was administered general anesthesia. He was then repositioned in semi lithotomy and lower abdomen, genitalia, and groin were then prepped and draped in sterile fashion. The 22 Pashto panendoscope was then pa ssed the lower urinary tract with the findings as described above. A 0.35 hybrid guidewire was then advanced in the left collecting system under direct fluoroscopic guidance. Over this a 15 Pashto by 6 cm balloon dilating catheter was positioned across the left ureterovesical junction. The balloon dilating catheter was then inflated to 18 atmospheres and held in position for 5 minutes. The balloon was then deflated and backloaded off the hybrid guidewire. The semi rigid ureteral scope was then prepared and advanced the lower urinary tract and then into the left ureteral orifice careful inspection of the left ureter x2 was conducted without evidence of the index calculus or evidence of stone extrusion through the wall. The semi rigid ureteral scope was then removed. The [place] endoscope was reintroduced and inspection of the bladder floor revealed the stone lying dependently. It was successfully removed using hydrostatic flow with emptying of the bladder. The stone was collected and submitted to the laboratory for routine crystallographic analysis. The patient was repositioned supine, awakened, then transferred to [facility] in stable condition. Complications: none Post-operative Condition: stable Disposition: PACU Plan for aftercare: Discharge home.
[2022-12-19] MEDS: CEFAZOLIN 2 GM/100 ML PREMIX 100 ML IV (10:54)
--- NOTE | 2022-12-19 11:16 | SUR.OPER ---
Lithotomy on padded OR bed, head on pillow, arms secured on padded arm boards at <90 degrees abduction. Legs secured in padded yellow fins stirrups.
[2022-12-19 11:44] VITALS: BP 130/69; PULSE 76; RESP 12; TEMP 36.1; O2SAT 97
[2022-12-19 11:49] VITALS: BP 135/68; PULSE 69; RESP 12; O2SAT 95
[2022-12-19 11:54] VITALS: BP 133/77; PULSE 67; RESP 16; TEMP 36.1; O2SAT 97
[2022-12-19 12:00] VITALS: BP 125/76; PULSE 71; RESP 12; TEMP 36.1; O2SAT 96
[2022-12-24 18:17] LABS: Ca oxalate dihydrate 90 % (.); Ca oxalate monohydr 10 % (.); Size 5x4 mm (.)
== END 2022-12-19 12:16 | disposition home or self-care (01) ==
PROVIDERS: PCP Nurse Practitioner Family; Referring Provider Specialist; Visit Provider Specialist
PROC: 0TF78ZZ Fragmentation in Left Ureter, Via Natural or Artificial Opening Endoscopic (ICD-10-PCS; CPT 52353; principal; 2022-12-19 10:15)
DX: N20.1 Calculus of ureter (principal)
CPT/HCPCS: 52352; 74018; 76000; 82365; C1771; J0131; J0690; J1100; J2405; J2704; J3010

== ENCOUNTER → 2023-01-16 11:53 | Outpatient (CLI) | payer MEDICARE, OTHER, SELFPAY ==
--- NOTE | 2023-01-16 11:55 | DI.RAD.S_ITS ---
PROCEDURE: XR HIP W PEL IF DONE ELIA MIN 4V INDICATIONS: Left greater than right hip to DJD TECHNIQUE: AP pelvis with lateral view(s) of the bilateral hip(s). COMPARISON: [facility], VERO, XR KUB, 12/19/2022, 8:50. [facility], RG, CT KUB, 12/09/2022, 10:08. FINDINGS: Bones: No fractures or dislocations. Pelvic ring appears intact. No suspicious bony lesions. Mild right and moderate left axial hip joint space narrowing with bilateral periarticular osteophyte formation. Degenerative disc and facet disease involves the inferior lumbar spine. Soft tissues: The visualized bowel gas pattern is normal. No suspicious soft tissue calcifications. 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 Dictated by: Mike BETHEA Interpreted: Buffy Shelby MD on 01/16/2023 at 13:23 Transcribed by: SHALONDA on 01/16/2023 at 13:24 Approved by: Buffy Shelby M.D. on 01/16/2023 at 15:51
== END ==
PROVIDERS: PCP Nurse Practitioner Family; Referring Provider Physical Medicine & Rehabilitation; Visit Provider Physical Medicine & Rehabilitation
DX: M16.0 Bilateral primary osteoarthritis of hip (principal); M47.817 Spondylosis without myelopathy or radiculopathy, lumbosacral region; M43.16 Spondylolisthesis, lumbar region; M41.27 Other idiopathic scoliosis, lumbosacral region; Z96.651 Presence of right artificial knee joint
CPT/HCPCS: 73522; 99214